=== PATIENT | female | born 1960 | race Caucasian/White ===

== ENCOUNTER 2021-10-14 11:18 | Outpatient (CLI) | payer OTHER, SELFPAY ==
--- NOTE | 2021-10-14 11:26 | MM_ITS ---
WS: [id number] DIAGNOSTIC BILATERAL DIGITAL BREAST TOMOSYNTHESIS MAMMOGRAPHY WITH CAD HISTORY: HX OF BREAST CA COMPARISON: 11/29/2020 and 10/10/2019 TECHNIQUE: Bilateral craniocaudad, mediolateral oblique, and mediolateral views are submitted with to mosynthesis and SM. Computer aided detection utilized. Breast composition: There are scattered areas of fibroglandular density. Volume loss and postsurgical changes in the RIGHT breast. Postoperative lumpectomy in the upper outer quadrant with adjacent scarring. No recurrent mass. No new mass. MM/[place] [id number] IMPRESSION: BI-RADS: 2-Benign FOLLOW UP: 1 Year Follow-up
== END 2021-10-14 11:19 | disposition home or self-care (01) ==
LOC: RAD 11:18
PROVIDERS: Visit Provider Physician Assistant
DX: Z85.3 Personal history of malignant neoplasm of breast (principal)
CPT/HCPCS: 77062; 77063; 77067

== ENCOUNTER 2022-11-09 10:43 | Outpatient (CLI) | payer OTHER, MEDICAID, SELFPAY ==
--- NOTE | 2022-11-09 10:55 | MM_ITS ---
WS: [email or web address] VIEWS: MLO, CC, and ML views both breasts. 3D digital tomosynthesis is also included in this exam. C omparison. 10/10/2019, 11/29/2020, 10/14/2021. Findings: Questionable new 8 mm nodule seen in the upper outer quadrant of the LEFT breast at posteri or depth. No new suspicious calcification or architectural distortion noted. Stable appearing postope rative changes seen in the upper outer quadrant of the RIGHT breast. There are scattered areas of fib roglandular density. Compression spot magnification views of the LEFT breast as well as regional ultr asound suggested for further work-up. Impression: MM/[place] [id number] BI-RADS: 0-Incomplete: Need additional imaging evaluation FOLLOW-UP: See Report This mammogram was also analyzed by the Computer Aided Detection System R2 Imag e Undergraduate Advisor.
== END 2022-11-09 10:44 | disposition home or self-care (01) ==
PROVIDERS: PCP Physician Assistant; Visit Provider Physician Assistant
DX: R92.8 Other abnormal and inconclusive findings on diagnostic imaging of breast (principal); N63.11 Unspecified lump in the right breast, upper outer quadrant
CPT/HCPCS: 77062; G0279

== ENCOUNTER 2022-11-12 08:44 | Outpatient (CLI) | payer OTHER, MEDICAID, SELFPAY ==
--- NOTE | 2022-11-12 08:54 | MM_ITS ---
WS: [email or web address] VIEWS: Magnification compression spot CC, MLO and ML views with tomography are obtained of the LEFT b reast. Findings: The previously described 8 mm nodule in the upper outer quadrant of the LEFT breast at posterior dept h persists on the compression magnification spot views. Biopsy is recommended based on mammographic a ppearance. This nodule was not well delineated on ultrasound performed on the same day. The LEFT kristi st is almost entirely fatty. Impression: MM/[place] [id number] BI-RADS: 4-Suspicious Finding-Biopsy Should Be Considered FOLLOW-UP: See Report This mammogram was also analyzed by the Computer Aided Detection System R2 Imag e Histologic Technician.
--- NOTE | 2022-11-12 08:54 | US_ITS ---
WS: [email or web address] Exam: US breast LT limited* [id number] Date/Time of Exam: 11/12/2022 9:40 AM Reason For Exam: ABNORMAL MAMMO Regional ultrasound of the upper outer quadrant of the LEFT breast is performed. The recently described new 8 mm nodule in the upper outer quadrant of the LEFT breast identified on m ammography is not definitely identified on ultrasound. There were no obvious solid or cystic lesions in this region. It is recommended that this abnormality be biopsied based on the mammographic finding s. IMPRESSION: 1. The previously described 8 mm nodule in the upper outer quadrant of the LEFT breast seen on recent mammography and compression magnification spot images is not well delineated with ultrasound. Biopsy is recommended based on mammographic findings.
== END 2022-11-12 08:45 | disposition home or self-care (01) ==
PROVIDERS: PCP Physician Assistant; Visit Provider Family Medicine
DX: N63.21 Unspecified lump in the left breast, upper outer quadrant (principal); R92.8 Other abnormal and inconclusive findings on diagnostic imaging of breast
CPT/HCPCS: 76642; 77061; G0279

== ENCOUNTER → 2023-03-08 14:52 | Outpatient (BNVA) | payer MEDICARE, MEDICAID, SELFPAY | PROVIDERS: PCP Physician Assistant; Visit Provider Nurse Practitioner Family | DX: L57.0 Actinic keratosis (principal); L57.8 Other skin changes due to chronic exposure to nonionizing radiation; D22.4 Melanocytic nevi of scalp and neck; L81.4 Other melanin hyperpigmentation; L82.1 Other seborrheic keratosis | CPT/HCPCS: 17000; 99213 ==

== ENCOUNTER 2023-04-29 12:50 | Oncology outpatient (recurring) (ONCR) | payer MEDICARE, MEDICAID, SELFPAY ==
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
--- NOTE | 2023-04-27 14:33 | ONCRAD TMN_ITS ---
Radiation Oncology Weekly Treatment Management Patient: Niki Bledsoe MR#: [id number] : 1960 Attending Physician: Dr. 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 ID: Breast_L, Energy: 15X/6X, Dose/Fx (cGy): 266, #Fx: , Dose Correction (cGy): 0, Total Dose Delivered (cGy): 266, Start Date: 04/27/2023, Elapsed Days: 0 Reason for visit: The patient is being seen today as part of their regularly scheduled weekly on treatment visits to assess for acute toxicities from radiotherapy. Review of Systems: Patient denies any complaints today. Vital Signs: Performed on 04/27/2023 1:23 PM BMI - 35.811 kg/m2 (high), Height - 65 in, Weight - 215.2 lbs, Temperature - 97.8 f, Pulse - 53 /min (low), Respiration - 18 /min, O2 Sat - 94 % (low), Pain - 2, Fatigue - 0 and BP - 147/ 67 mm(hg)(high/). Physical Exam: On examination she has no skin changes Imaging: Radiation therapy imaging related to accurate target localization (i.e. KV, MV and CBCT) was reviewed. Appropriate changes, if any, were made to ensure treatment accuracy. Plan: Will continue with her treatments as planned. Today was her first treatment. She had no additional questions or concerns today. We did review her skin care regiment. Signed by: Dr. Hansa Andrade 04/27/2023 2:32:45 PM
== END 2023-04-29 23:59 | disposition home or self-care (01) ==
PROVIDERS: PCP Physician Assistant; Visit Provider Radiology Radiation Oncology
DX: Z51.0 Encounter for antineoplastic radiation therapy (principal); D05.12 Intraductal carcinoma in situ of left breast; Z17.0 Estrogen receptor positive status [ER+]
CPT/HCPCS: 77280; 77295; 77300; 77321; 77334; 77387; 77412; 99024; 99205

== ENCOUNTER 2023-05-27 06:00 | Oncology outpatient (recurring) (ONCR) | payer MEDICARE, MEDICAID, SELFPAY ==
--- NOTE | 2023-05-04 13:36 | ONCRAD TMN_ITS ---
Radiation Oncology Weekly Treatment Management Patient: Niki Bledsoe MR#: [id number] : 1960 Attending Physician: Dr. 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 ID: Breast_L, Energy: 15X/6X, Dose/Fx (cGy): 266, #Fx: , Dose Correction (cGy): 0, Total Dose Delivered (cGy): 1,596, Start Date: 04/27/2023, Elapsed Days: 7 Reason for visit: The patient is being seen today as part of their regularly scheduled weekly on treatment visits to assess for acute toxicities from radiotherapy. Review of Systems: Patient is a good spirits. She has noticed that the breast is somewhat caught at different times of the day. Vital Signs: Performed on 05/04/2023 1:02 PM BMI - 35.778 kg/m2 (high), Height - 65 in, Weight - 215 lbs, Temperature - 96.6 f, Pulse - 52 /min (low), Respiration - 16 /min, O2 Sat - 98 %, Pain - 0, Fatigue - 0 and BP - 138/ 53 mm(hg)(/low). Physical Exam: On examination she has no skin changes as yet Imaging: Radiation therapy imaging related to accurate target localization (i.e. KV, MV and CBCT) was reviewed. Appropriate changes, if any, were made to ensure treatment accuracy. Plan: Will continue with her treatments as planned Signed by: Dr. Hansa Andrade 05/04/2023 1:34:28 PM
--- NOTE | 2023-05-11 13:31 | ONCRAD TMN_ITS ---
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 ID: Breast_L, Energy: 15X/6X, Dose/Fx (cGy): 266, #Fx: , Dose Correction (cGy): 0, Total Dose Delivered (cGy): 2,926, Start Date: 04/27/2023, Elapsed Days: 14 Reason for visit: The patient is being seen today as part of their regularly scheduled weekly on treatment visits to assess for acute toxicities from radiotherapy. Review of Systems: Patient denies difficulty with skin irritation, pain, or fatigue. She is using moisturizers daily. Vital Signs: Performed on 05/11/2023 1:02 PM BMI - 35.911 kg/m2 (high), Height - 65 in, Weight - 215.8 lbs, Temperature - 97.4 f, Pulse - 58 /min (low), Respiration - 16 /min, O2 Sat - 98 %, Pain - 0, Fatigue - 0 and BP - 142/ 58 mm(hg)(high/low). Physical Exam: Alert and oriented female appearing her stated age. Skin in the treatment area is mildly erythematous. No moist desquamation. Incision site along the lateral left breast is well-healed. Imaging: Radiation therapy imaging related to accurate target localization (i.e. KV, MV and CBCT) was reviewed. Appropriate changes, if any, were made to ensure treatment accuracy. Plan: Patient is tolerating radiation therapy well with minimal treatment related side effects thus far. Plan to continue prescribed treatment. Signed by: Albert Lou 05/11/2023 1:30:03 PM
--- NOTE | 2023-05-18 13:51 | ONCRAD TMN_ITS ---
Radiation Oncology Weekly Treatment Management Patient: Niki Bledsoe MR#: [id number] : 1960 Attending Physician: Josué Rivera Date of Service: 05/18/2023 Referring Physician(s) : Dr. 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 ID: Breast_L, Energy: 15X/6X, Dose/Fx (cGy): 266, #Fx: , Dose Correction (cGy): 0, Total Dose Delivered (cGy): 4,256, Start Date: 04/27/2023, End Date: 05/18/2023, Elapsed Days: 21 Reason for visit: The patient is being seen today as part of their regularly scheduled weekly on treatment visits to assess for acute toxicities from radiotherapy. Review of Systems: She notes left upper breast and areolar pain and itch. Usng aloe vera ant Tylenol once a day for pain. Tylenol does make her sleepy. Vital Signs: Performed on 05/18/2023 12:52 PM BMI - 43.566 kg/m2 (high), Height - 65 in, Weight - 261.8 lbs, Temperature - 97.0 f, Pulse - 60 /min, Respiration - 18 /min, O2 Sat - 99 %, Pain - 8, Fatigue - 5 and BP - 141/ 66 mm(hg)(high/). Physical Exam: follicular rash superior left breast and erythema round areola.. Imaging: Radiation therapy imaging related to accurate target localization (i.e. KV, MV and CBCT) was reviewed. Appropriate changes, if any, were made to ensure treatment accuracy. Plan: Good tolerance of treatment. Add Aquaphor and topical steroids and/or OTC cortisone for itch. Will not proceed with volume reduction to planned boost. Signed by: Josué Rivera 05/18/2023 1:49:55 PM
--- NOTE | 2023-05-25 09:42 | N.ONRD TS_ITS ---
Radiation Oncology Treatment Summary Patient: Rakan>Joslyn MR#: [id number] : 1960> Age: 63> Sex: Female Dictated by: Dr. 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 ID: Breast_L, Energy: 15X/6X, Dose/Fx (cGy): 266, #Fx: 16 / 16, Dose Correction (cGy): 0, Total Dose Delivered (cGy): 4,256, Start Date: 04/27/2023, End Date: 05/18/2023, Elapsed Days: 21 Treatment Site: LT Breast Boost, Ref. ID: CTV Total, Energy: 6X, Dose/Fx (cGy): 250, #Fx: 4 / 4, Dose Correction (cGy): 0, Total Dose Delivered (cGy): 1,000, Start Date: 05/19/2023, End Date: 05/24/2023, Elapsed Days: 5 Clinical Summary: The patient tolerated RT well. Patient developed a mild skin reaction and mild fatigue Plan: End of treatment today. Continue on the above medication until the skin reaction resolves. Follow up in one month. Signed by: Dr. Hansa Andrade>05/25/2023 9:40:28 AM <<Signature on File>>
== END 2023-05-30 23:59 | disposition home or self-care (01) ==
PROVIDERS: PCP Physician Assistant; Visit Provider Radiology Radiation Oncology
DX: Z51.0 Encounter for antineoplastic radiation therapy (principal); D05.12 Intraductal carcinoma in situ of left breast
CPT/HCPCS: 77014; 77336; 77387; 77412; 99024

== ENCOUNTER 2023-06-24 12:46 | Oncology outpatient (recurring) (ONCR) | payer MEDICARE, MEDICAID, SELFPAY ==
--- NOTE | 2023-06-24 13:30 | ONCRAD EPV_ITS ---
Radiation Oncology Established Patient Visit Patient: Niki Bledsoe [id number] : 1960 Age: 63 Sex: Female Dictated by: Dr. 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 ID: Breast_L Energy: 15X/6X, Dose/Fx (cGy): 266, #Fx: 16 / 16, Dose Correction (cGy): 0, Total Dose Delivered (cGy): 4,256, Start Date: 04/27/2023, End Date: 05/18/2023, Elapsed Days: LT Breast 2023, Treatment Site: LT Breast Boost, Ref. ID: CTV Total, Energy: 6X, Dose/Fx (cGy): 250, #Fx: 4 / 4, Dose Correction (cGy): 0, Total Dose Delivered (cGy): 1,000, Start Date: 05/19/2023, End Date: 05/24/2023, Elapsed Days: 5 Current History: Patient returns today 1 month after completing radiation to the left breast. She was treated in 2017 to the right breast in [place]. Current Medications: Allergies: Current Complaints / Review of Systems: . She has no complaints today. Her skin is nicely healed. Vital Signs: Performed on 06/24/2023 12:57 PM BMI - 35.445 kg/m2 (high), Height - 65 in, Weight - 213 lbs, Temperature - 97.5 f, Pulse - 59 /min (low), Respiration - 16 /min, O2 Sat - 98 %, Pain - 0, Fatigue - 3 and BP - 155/ 70 mm(hg)(high/). Physical Exam: General: Alert and oriented x 3. No acute distress. HEENT: Normocephalic, atraumatic. Extraocular Movements Intact: Pupils Equal, Round, Reactive to Light Sclerae anicteric. LUNGS:. Respiratory rate is regular nonlabored HEART: Regular rate and rhythm, ABDOMEN: Moderately protuberant and nontender EXTREMITIES: No peripheral edema is identified. NEUROLOGIC: Alert and orient x 3. Gait and speech within normal limits. Breast exam: The skin overlying the left breast is healed nicely. There is no dryness or erythema. No masses could be appreciated in either breast Performance Status: 100 Lab: None pending. Pathology: Primary, d05.12 - intraductal carcinoma in situ of left breast, Diagnosed 12/14/2022 (active) . Imaging: See HPI Impression: Bilateral breast cancer initially diagnosed 2016 and most recent this year Plan: At this point she is not going to be taking any medication. She told the medical oncologist that the side effects were too severe. She had previously taken tamoxifen for 5 years after initial diagnosis in 2016. At this point since she is not going to be taking any medication she will be following up in [place]. Will go ahead and order her mammogram then which at this point she like to wait for a while to get this done. She is due in October so we will get it scheduled for then and that will be her annual mammogram date. She is contemplating moving to [place], [place] or [place]. I have asked her to make sure she picks up her records and takes them with her if she should move. Signed by: 06/24/2023 1:28:35 PM <<Signature on File>> Time spent with patient:20 CPT Code: CPT Code:
== END 2023-06-29 23:59 | disposition home or self-care (01) ==
PROVIDERS: PCP Physician Assistant; Visit Provider Radiology Radiation Oncology
DX: D05.12 Intraductal carcinoma in situ of left breast; Z92.3 Personal history of irradiation
CPT/HCPCS: 99024

== ENCOUNTER → 2023-10-26 09:46 | Outpatient (BNVA) | payer MEDICARE, MEDICAID, SELFPAY | PROVIDERS: PCP Physician Assistant; Visit Provider Nurse Practitioner Family | DX: L57.0 Actinic keratosis (principal); D22.4 Melanocytic nevi of scalp and neck; L81.4 Other melanin hyperpigmentation; L82.1 Other seborrheic keratosis | CPT/HCPCS: 17000; 99213 ==

== ENCOUNTER 2023-11-03 14:43 | Outpatient (CLI) | payer MEDICARE, MEDICAID, SELFPAY ==
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
== END 2023-11-03 14:44 | disposition home or self-care (01) ==
LOC: RAD 14:45
PROVIDERS: PCP Physician Assistant; Visit Provider Internal Medicine Hematology & Oncology
DX: Z13.820 Encounter for screening for osteoporosis (principal); Z78.0 Asymptomatic menopausal state; C50.912 Malignant neoplasm of unspecified site of left female breast
CPT/HCPCS: 77080

== ENCOUNTER 2024-01-14 12:01 | Outpatient (RCR) | payer MEDICARE, MEDICAID, SELFPAY | END 2024-01-29 23:59 | disposition home or self-care (01) | LOC: SPT 12:01 | PROVIDERS: Visit Provider Physician Assistant | DX: M54.50 Low back pain, unspecified (principal); G89.29 Other chronic pain | CPT/HCPCS: 97161 ==

== ENCOUNTER 2024-11-22 10:57 | Outpatient (CLI) | payer MEDICARE, SELFPAY ==
--- NOTE | 2024-11-22 11:09 | MM_ITS ---
WS: [email or web address] DIAGNOSTIC BILATERAL DIGITAL BREAST TOMOSYNTHESIS MAMMOGRAPHY WITH CAD HISTORY: HX OF BREAST CANCER, history of prior bilateral lumpectomies. Lumpectomy December 2022 LEFT breast. COMPARISON: 11/29/2023, 07/16/2023, 12/14/2022, 11/12/2022 TECHNIQUE: Bilateral craniocaudad, mediolateral oblique, and mediolateral views are submitted with tomosynthesis and SM. Computer aided detection utilized. Breast composition: There are scattered areas of fibroglandular density. Postoperative scarring and lumpectomy sites with distortion in the upper outer quadrant of each breast. Dystrophic calcification developing at the lumpectomy site within the RIGHT breast. Distortion upper outer quadrant LEFT breast at the lumpectomy site with no interval development of a mass or suspicious grouping of calcifications. Bilateral breast calcifications are identified. MM/MM diag BI tomosynthesis [id number] IMPRESSION: BI-RADS: 2 - Benign. FOLLOW UP: 1 Year Follow-up
== END 2024-11-22 10:58 | disposition home or self-care (01) ==
LOC: RAD 10:59
PROVIDERS: Visit Provider Physician Assistant
DX: Z85.3 Personal history of malignant neoplasm of breast (principal); R92.1 Mammographic calcification found on diagnostic imaging of breast
CPT/HCPCS: 77062; G0279